=== PATIENT | female | born 1995 | race Caucasian/White ===

== ENCOUNTER → 2021-06-21 | Outpatient (CLI) | payer OTHER ==
[~2021-06-21] MED LIST: IBUP800 PO; OXYACE5T PO
== END | disposition home or self-care (01) ==
LOC: LAB SHORT 09:54
DX: Z34.03 Encounter for supervision of normal first pregnancy, third trimester (principal)
CPT/HCPCS: 87081; 87150

== ENCOUNTER 2021-07-31 16:10 | Inpatient (IN) | payer OTHER ==
[~2021-07-31] VITALS: Ht 160 cm; Wt 96.8 kg
[2021-07-31 18:05] LABS: Influenza A, PCR NEGATIVE (NEGATIVE); Influenza B, PCR NEGATIVE (NEGATIVE); Resp Syncytial Virus, PCR NEGATIVE (NEGATIVE); SARS-Cov-2 (COVID-19) PCR, MMC NEGATIVE (NEGATIVE)
[2021-07-31 18:08] LABS: BASOPHILS ABSOLUTE AUTO 0.03 K/mm3 (0.00-0.23); BASOPHILS PERCENT AUTO 0 % (0-2); EOSINOPHILS ABSOLUTE AUTO 0.04 K/mm3 (0.00-0.68); EOSINOPHILS PERCENT AUTO 1 % (0-6); Hematocrit 35.5 % (33.0-51.0); Hemoglobin 12.6 g/dL (11.5-16.0); IMMATURE GRAN ABSOLUTE AUTO 0.03 K/mm3 (0.00-0.10); IMMATURE GRAN PERCENT AUTO 0 % (0-1); LYMPHOCYTES ABSOLUTE AUTO 1.98 K/mm3 (0.84-5.20); LYMPHOCYTES PERCENT AUTO 24 % (21-46); MONOCYTES ABSOLUTE AUTO 0.76 K/mm3 (0.16-1.47); MONOCYTES PERCENT AUTO 9 % (4-13); Mean Corpuscular HGB 31.3 pg (26.0-34.0); Mean Corpuscular HGB Conc 35.5 g/dL (31.5-36.5); Mean Corpuscular Volume 88 fL (80-100); Mean Platelet Volume 10.7 fL (9.1-12.4); NEUTROPHILS ABSOLUTE AUTO 5.32 K/mm3 (1.96-9.15); NEUTROPHILS PERCENT AUTO 65 % (41-73); Platelet Count 298 K/mm3 (150-400); RDW Coefficient Variation 12.1 % (11.7-14.2); RDW Standard Deviation 38.8 fL (35.1-46.3); Red Blood Cell Count 4.02 M/mm3 (3.80-5.20); White Blood Cell Count 8.16 K/mm3 (4.00-11.30)
[2021-07-31] MEDS ORDERED: PRENATAL TABLE1 EAC2 PO (18:09)
--- NOTE | 2021-08-02 17:55 | NUR ---
LATE ENTRY PER EMR INITIATE PROTOCOL : EPIDURAL PRE VERBAL ORDER FROM JENNIFER MOREIRA/MAURILIO PATRICK 08/01/21 0710
[2021-08-03 05:54] LABS: BASOPHILS ABSOLUTE AUTO 0.07 K/mm3 (0.00-0.23); BASOPHILS PERCENT AUTO 1 % (0-2); EOSINOPHILS ABSOLUTE AUTO 0.18 K/mm3 (0.00-0.68); EOSINOPHILS PERCENT AUTO 2 % (0-6); Hematocrit 32.2 % (33.0-51.0); Hemoglobin 10.9 g/dL (11.5-16.0); IMMATURE GRAN ABSOLUTE AUTO 0.06 K/mm3 (0.00-0.10); IMMATURE GRAN PERCENT AUTO 1 % (0-1); LYMPHOCYTES ABSOLUTE AUTO 2.54 K/mm3 (0.84-5.20); LYMPHOCYTES PERCENT AUTO 22 % (21-46); MONOCYTES ABSOLUTE AUTO 0.97 K/mm3 (0.16-1.47); MONOCYTES PERCENT AUTO 8 % (4-13); Mean Corpuscular HGB 31.1 pg (26.0-34.0); Mean Corpuscular HGB Conc 33.9 g/dL (31.5-36.5); Mean Corpuscular Volume 92 fL (80-100); Mean Platelet Volume 10.9 fL (9.1-12.4); NEUTROPHILS ABSOLUTE AUTO 7.96 K/mm3 (1.96-9.15); NEUTROPHILS PERCENT AUTO 68 % (41-73); Platelet Count 213 K/mm3 (150-400); RDW Coefficient Variation 12.4 % (11.7-14.2); RDW Standard Deviation 41.1 fL (35.1-46.3); White Blood Cell Count 11.78 K/mm3 (4.00-11.30)
--- NOTE | 2021-08-03 11:21 | NUR ---
DISCHARGE TEACHING COMPETED, QUESTIONS ANSWERED, REVIEWED FOLLOW UP APPOINTMENT.
--- NOTE | 2021-08-03 11:35 | NUR ---
DISCHARGED TO HOME WITH HINA
== END 2021-08-03 11:35 | disposition home or self-care (01) | DRG 807 ==
LOC: OBS 16:10 → BC 16:23
PROVIDERS: Advanced Practice Midwife; ADMIT Family Medicine
PROC: 10E0XZZ Delivery of Products of Conception, External Approach (ICD-10-PCS; principal; 2021-08-02)
PROC: 0KQM0ZZ Repair Perineum Muscle, Open Approach (ICD-10-PCS; 2021-08-02)
PROC: 10907ZC Drainage of Amniotic Fluid, Therapeutic from Products of Conception, Via Natural or Artificial Opening (ICD-10-PCS; 2021-08-02)
DX: O48.0 Post-term pregnancy (principal); Z37.0 Single live birth; Z3A.41 41 weeks gestation of pregnancy; O70.1 Second degree perineal laceration during delivery; O69.81X0 Labor and delivery complicated by cord around neck, without compression, not applicable or unspecified
CPT/HCPCS: 0241U; 36415; 51702; 85025; 86850; 86900; 86901; A9270; J1885; J2001; J2210; J2405; J2590; J3010; J7120

== ENCOUNTER 2021-08-07 04:26 | Inpatient (IN) | payer OTHER ==
[~2021-08-07] VITALS: Ht 157.5 cm; Wt 89.3 kg
[~2021-08-07 04:26] MED LIST changes: +PRENATAL TABLE1 EAC2 PO
[2021-08-07 05:42] LABS: BASOPHILS ABSOLUTE AUTO 0.05 K/mm3 (0.00-0.23); BASOPHILS PERCENT AUTO 1 % (0-2); EOSINOPHILS ABSOLUTE AUTO 0.01 K/mm3 (0.00-0.68); EOSINOPHILS PERCENT AUTO 0 % (0-6); Hematocrit 36.8 % (33.0-51.0); Hemoglobin 12.6 g/dL (11.5-16.0); IMMATURE GRAN ABSOLUTE AUTO 0.05 K/mm3 (0.00-0.10); IMMATURE GRAN PERCENT AUTO 1 % (0-1); LYMPHOCYTES ABSOLUTE AUTO 0.87 K/mm3 (0.84-5.20); LYMPHOCYTES PERCENT AUTO 9 % (21-46); MONOCYTES ABSOLUTE AUTO 0.89 K/mm3 (0.16-1.47); MONOCYTES PERCENT AUTO 9 % (4-13); Mean Corpuscular HGB 31.1 pg (26.0-34.0); Mean Corpuscular HGB Conc 34.2 g/dL (31.5-36.5); Mean Corpuscular Volume 91 fL (80-100); Mean Platelet Volume 10.1 fL (9.1-12.4); NEUTROPHILS PERCENT AUTO 81 % (41-73); Platelet Count 285 K/mm3 (150-400); RDW Coefficient Variation 12.3 % (11.7-14.2); RDW Standard Deviation 40.4 fL (35.1-46.3); Red Blood Cell Count 4.05 M/mm3 (3.80-5.20); White Blood Cell Count 9.87 K/mm3 (4.00-11.30)
[2021-08-07 05:55] LABS: Alanine Aminotransfer (ALT/SGP 27 U/L (12-78); Albumin, Blood 2.7 g/dL (3.4-5.0); Albumin/Globulin Ratio 0.6 (0.8-1.8); Alk Phos 107 U/L (50-136); Anion Gap 9 mmol/L (6-16); Aspartate Aminotrans (AST/SGOT 18 U/L (12-37); Bilirubin, Total 0.5 mg/dL (0.1-1.0); Blood Urea Nitrogen 12 mg/dL (8-24); Bun/Creatinine Ratio 17.1 (12.0-20.0); CO2, Blood 20 mmol/L (21-32); Chloride, Blood 109 mmol/L (98-108); Globulin, Blood 4.4 g/dL (2.2-4.0); Glomerular Filtration Rate >60 (60-); Glucose, Blood 91 mg/dL (70-99); Potassium, Blood 3.8 mmol/L (3.5-5.5); Sodium, Blood 138 mmol/L (136-145); Total Protein, Blood 7.1 g/dL (6.4-8.2)
[2021-08-07] MEDS ORDERED: AMOCLA875 PO (06:29)
[2021-08-07 09:53] LABS: Influenza A, PCR NEGATIVE (NEGATIVE); Influenza B, PCR NEGATIVE (NEGATIVE); Resp Syncytial Virus, PCR NEGATIVE (NEGATIVE); SARS-Cov-2 (COVID-19) PCR, MMC NEGATIVE (NEGATIVE)
[2021-08-07 13:32] LABS: BASOPHILS ABSOLUTE AUTO 0.04 K/mm3 (0.00-0.23); BASOPHILS PERCENT AUTO 0 % (0-2); EOSINOPHILS ABSOLUTE AUTO 0.06 K/mm3 (0.00-0.68); EOSINOPHILS PERCENT AUTO 1 % (0-6); Hematocrit 32.7 % (33.0-51.0); Hemoglobin 11.2 g/dL (11.5-16.0); IMMATURE GRAN ABSOLUTE AUTO 0.13 K/mm3 (0.00-0.10); IMMATURE GRAN PERCENT AUTO 1 % (0-1); LYMPHOCYTES ABSOLUTE AUTO 1.07 K/mm3 (0.84-5.20); LYMPHOCYTES PERCENT AUTO 10 % (21-46); MONOCYTES ABSOLUTE AUTO 1.13 K/mm3 (0.16-1.47); MONOCYTES PERCENT AUTO 10 % (4-13); Mean Corpuscular HGB 30.9 pg (26.0-34.0); Mean Corpuscular HGB Conc 34.3 g/dL (31.5-36.5); Mean Corpuscular Volume 90 fL (80-100); NEUTROPHILS ABSOLUTE AUTO 8.47 K/mm3 (1.96-9.15); NEUTROPHILS PERCENT AUTO 78 % (41-73); Platelet Count 265 K/mm3 (150-400); RDW Coefficient Variation 12.3 % (11.7-14.2); RDW Standard Deviation 40.1 fL (35.1-46.3); Red Blood Cell Count 3.63 M/mm3 (3.80-5.20)
--- NOTE | 2021-08-07 16:08 | NUR ---
Pt. was alert and in bed, and welcomed my visit. Established rapport quickly as we have common personal connections. Pt. clearly understood her condition and was hopeful to be able to discharge in 48 hrs. Spouse and child arrived. Prayed with pt. and will check on her tomorrow. Pt. verbalized gratitude for visit. I will monitor.
--- NOTE | 2021-08-07 19:21 | NUR ---
SHIFT SUMMARY PT'S FEVER BROKE THIS AFTERNOON AFTER TYLENOL AND TORADOL. SHE IS GETTING IV ABX. SHE REPORTS DECREASED DISCOMFORT TO LOWER ABD. COMPLAINS OF A HEADACHE, MANAGED WITH TYLENOL AND TORADOL. INDEPENDENT IN ROOM. BABY IN ROOM WITH PT, OK PER DR. OLIVEIRA TO BREASTFEED. VSS. REPORT GIVEN TO HAILE YU.
[2021-08-07 22:43] LABS: Source, Urine Clean Catch
[2021-08-07 22:50] LABS: Bilirubin, Urine Neg (Neg); Blood, Urine 5+ (Neg); Glucose Qualitative, Urine Neg (Neg); Ketones, Urine 4+ (Neg); Leukocyte Esterase, Urine 2+ (Neg); Nitrite, Urine Neg (Neg); Protein, Urine 2+ (Neg); Urobilinogen, Urine 1+ (Normal)
[2021-08-07 23:00] LABS: Appearance, Urine Hazy (Clear); Color, Urine Yellow (P-Yellow)
[2021-08-07 23:01] LABS: Bacteria Mod /hpf; Red Blood Cells, Urine 25-50 /hpf (0-2); Squamous Epithelial Cells Few /hpf (Few); Yeast/Fungi Urine Rare /hpf
--- NOTE | 2021-08-08 05:41 | NUR ---
SHIFT SUMMARY KARY IS S/P VAGINAL DELIVERY, [id number]. ADMITTED FOR FEVER, SHAKINESS, HEADACHE. PT REPORTS BURNING WITH URINATION, URINE SPECIMEN SENT TO LAB. REPORTS VAGINAL DISCHARGE MOVING FROM RED BLOOD TO BROWNISH BLOOD. DENIES CLOTS AND FREQUENT PAD CHANGES. PT IS PUMPING BREAST MILK WITHOUT DIFFICULTY. UP AND OUT OF BED TO SHOWER. REPORTS THAT HER HEADACHE HAS IMPROVED. GENERAL DIET, ROOM AIR. IV ACCESS IN LFA WITH LACTATED RINGERS INFUSING AT 125ML/HR. ABLE TO CALL TO MAKE NEEDS KNOWN. SCDS IN PLACE FOR DVT PROPHYLAXIS.
--- NOTE | 2021-08-08 07:08 | NUR ---
PT AFEBRILE T/O NIGHT; VSS. PT REP LOWER ABD AND BACK PAIN, REP PAIN IMPROVED THIS AM. PT REP LESS PAIN W/VOIDING THIS AM. VAGNAL DISCHARGE APPEARS DARK RED, PT DOING RITCHIE CARE PRN. PT PUMPING AND STORING BREAST MILK. NO C/O N/V. IVF AND ABX CONT PER ORDERS.
[2021-08-08 08:57] LABS: BASOPHILS ABSOLUTE AUTO 0.03 K/mm3 (0.00-0.23); BASOPHILS PERCENT AUTO 0 % (0-2); EOSINOPHILS ABSOLUTE AUTO 0.04 K/mm3 (0.00-0.68); EOSINOPHILS PERCENT AUTO 1 % (0-6); Hematocrit 32.4 % (33.0-51.0); Hemoglobin 10.7 g/dL (11.5-16.0); IMMATURE GRAN ABSOLUTE AUTO 0.07 K/mm3 (0.00-0.10); IMMATURE GRAN PERCENT AUTO 1 % (0-1); LYMPHOCYTES PERCENT AUTO 20 % (21-46); MONOCYTES ABSOLUTE AUTO 0.83 K/mm3 (0.16-1.47); MONOCYTES PERCENT AUTO 10 % (4-13); Mean Corpuscular HGB 30.4 pg (26.0-34.0); Mean Corpuscular Volume 92 fL (80-100); Mean Platelet Volume 9.8 fL (9.1-12.4); NEUTROPHILS ABSOLUTE AUTO 5.52 K/mm3 (1.96-9.15); NEUTROPHILS PERCENT AUTO 68 % (41-73); Platelet Count 288 K/mm3 (150-400); RDW Coefficient Variation 12.3 % (11.7-14.2); RDW Standard Deviation 41.7 fL (35.1-46.3); Red Blood Cell Count 3.52 M/mm3 (3.80-5.20); White Blood Cell Count 8.09 K/mm3 (4.00-11.30)
--- NOTE | 2021-08-08 10:24 | NUR ---
PT SALINE LOCKED AT APROX [address] OLIVEIRA VERBAL ORDER.
--- NOTE | 2021-08-08 12:09 | NUR ---
Pt. was alert and in bed with sleeping on her chest. Pt. welcomed my visit. 2. There were no sigificant signs of outward stress. Pt. was a little unsettled about staying healthy so she take her home tomorrow. Normalized Pt. experience. Explored family plans and provided encouragement. Spouse arrived. Prayed with family. I will monitor.
[2021-08-08 18:17] LABS: Gentamicin, Random 0.6 ug/Ml
--- NOTE | 2021-08-09 00:34 | NUR ---
LATE ENTRY: 2300: RN PLACED PHONE CALL TO PHARMACIST, VALENTE JERRY, TO DISCUSS PT'S AMPICILLIN. TODAY'S 1800 DOSE WAS ADMINISTERED AT 2040, SHOULD WE SKIP NEXT DOSE? PER [facility] TO STANDARD TIME, VALENTE ADVISED TO SKIP 0000 DOSE AND RESUME AT 0500. RN WILL UPDATE EMAR.
--- NOTE | 2021-08-09 04:56 | NUR ---
SHIFT SUMMARY PT HAS REMAINED AFEBRILE THIS SHIFT. S/P SPON VAG DELIVERY, 6 DAYS AGO. DENIES PASSING VAGINAL CLOTS OR VAG DISCHARGE. REPORTS DYSURIA HAS IMPROVED. REPORTS FLANK PAIN "OVER MY KIDNEYS." PUMPING Q3 HOURS. INDEPENDENT IN ROOM, SHOWERING AND USING THE BR. CALLS APPRPRIATELY. DENIES HEADACHE, CHILLS/SHAKING. VSS, NO ACUTE CHANGES. A&O X4. EAGERLY ANTICIPATES DISCHARGE.
[2021-08-09] MEDS ORDERED: ACET500 PO (08:32)
[2021-08-09] MEDS ORDERED: DOCU100 PO (08:32)
[2021-08-09] MEDS ORDERED: IBUP800 PO (08:35)
[2021-08-09] MEDS ORDERED: AMOCLA875 PO (08:36)
--- NOTE | 2021-08-09 09:33 | NUR ---
DISCHARGE PT DISCHARGED HOME AT APROX 0905. PT GIVEN WRITTEN AND VERBAL DISCHARGE INSTRUCTIONS AND VERBALIZED UNDERSTANDING. IV REMOVED. PT REPORTS SHE ALREADY HAS A RX FOR ABX AT HOME SO DOES NOT NEED MEDICATION SENT TO A PHARMACY.
== END 2021-08-09 09:38 | disposition home or self-care (01) | DRG 776 ==
LOC: ER 04:26 → ERHOLD 06:24 → SURS 10:27
PROVIDERS: Student in an Organized Health Care Education/Training Program; ADMIT Obstetrics & Gynecology
DX: O86.12 Endometritis following delivery (principal); O86.21 Infection of kidney following delivery; Z20.822 Contact with and (suspected) exposure to COVID-19; O99.285 Endocrine, nutritional and metabolic diseases complicating the puerperium; E86.0 Dehydration; O99.893 Other specified diseases and conditions complicating puerperium; R51.9 Headache, unspecified; Z85.828 Personal history of other malignant neoplasm of skin
CPT/HCPCS: 0241U; 36415; 74177; 76856; 80053; 80170; 81001; 83605; 85025; 87040; 87086; 93005; 93010; 96365; 96375; 99285; A9270; J0290; J1580; J1885; J7050; J7120; Q9967

== ENCOUNTER → 2022-05-27 | Outpatient (CLI) | payer OTHER ==
[~2022-05-27] MED LIST changes: +ACET500 PO; +AMOCLA875 PO; +DOCU100 PO; +EPIPEN0.3 MG/0.1 IJ
== END | disposition home or self-care (01) ==
LOC: RAD SHORT 12:22 → LAB SHORT 12:22 → LAB 12:22
PROVIDERS: Advanced Practice Midwife
DX: Z01.419 Encounter for gynecological examination (general) (routine) without abnormal findings (principal)
CPT/HCPCS: G0123

== ENCOUNTER → 2022-08-15 | Outpatient (CLI) | payer OTHER | END | disposition home or self-care (01) | LOC: LAB SHORT 11:00 → LAB 11:00 | DX: N76.0 Acute vaginitis (principal) | CPT/HCPCS: 87077; 87086; 87186 ==

== ENCOUNTER 2023-06-03 13:55 | Inpatient (IN) | payer OTHER ==
[2023-06-03] VITALS (12 sets, daily range): BP systolic 99–131; BP diastolic 56–87
[~2023-06-03] VITALS: Ht 157.5 cm; Wt 90.0 kg
[2023-06-03 14:50] LABS: BASOPHILS ABSOLUTE AUTO 0.05 K/mm3 (0.00-0.23); BASOPHILS PERCENT AUTO 1 % (0-2); EOSINOPHILS ABSOLUTE AUTO 0.04 K/mm3 (0.00-0.68); EOSINOPHILS PERCENT AUTO 0 % (0-6); Hematocrit 37.9 % (33.0-51.0); Hemoglobin 13.1 g/dL (11.5-16.0); IMMATURE GRAN ABSOLUTE AUTO 0.02 K/mm3 (0.00-0.10); IMMATURE GRAN PERCENT AUTO 0 % (0-1); LYMPHOCYTES ABSOLUTE AUTO 2.27 K/mm3 (0.84-5.20); LYMPHOCYTES PERCENT AUTO 24 % (21-46); MONOCYTES ABSOLUTE AUTO 0.68 K/mm3 (0.16-1.47); MONOCYTES PERCENT AUTO 7 % (4-13); Mean Corpuscular HGB Conc 34.6 g/dL (31.5-36.5); Mean Corpuscular Volume 90 fL (80-100); Mean Platelet Volume 10.7 fL (9.1-12.4); NEUTROPHILS ABSOLUTE AUTO 6.36 K/mm3 (1.96-9.15); NEUTROPHILS PERCENT AUTO 68 % (41-73); Platelet Count 299 K/mm3 (150-400); RDW Coefficient Variation 12.3 % (11.7-14.2); RDW Standard Deviation 39.7 fL (35.1-46.3); Red Blood Cell Count 4.23 M/mm3 (3.80-5.20); White Blood Cell Count 9.42 K/mm3 (4.00-11.30)
[2023-06-03] MEDS ORDERED: PRENATAL TABLE1 EAC2 PO (15:02)
[2023-06-04] VITALS (38 sets, daily range): BP systolic 83–176; BP diastolic 50–88
--- NOTE | 2023-06-04 10:15 | NUR ---
PT REPORTED FEELING A LARGE GUSH OF BLOOD. RN NOTED LARGE AMOUNT OF BLOOD ON PAD. FUNDUS FIRM, AT UMBILICUS. BLADDER FELT FULL. PT VERBALIZED SHE FELT OKAY AND WANTED TO GET UP AND TRY TO VOID AND SHOWER. NO MORE BLOOD LEAKING WITH FUNDAL RUB. RN GOT PT UP TO SHOWER. ONCE IN SHOWER FOR A FEW MINUTES PT VERBALIZED MORE BLOOD COMING OUT, RN VISUALIZED ANOTHER LARGE AMOUNT OF BLOOD LEAKING FROM PT VAGINA. SHOWER TURNED OFF, CALLED FOR HELP. METHERGINE GIVEN IM, 2ND BAG OF PITOCIN STARTED. RN CALLED JENNIFER MOREIRA CNM AND NOTIFIED OF HEMORRHAGE. QBL NOW AT 798 PLUS AN ADDITION EBL OF AT LEAST 200 IN THE SHOWER THAT WE WERE UNABLE TO MEASURE. ORDER RECIEVED TO GIVE 400 MCG CYTOTEC BUCCAL WELL.
[2023-06-05 00:15] VITALS: BP 107/51
[2023-06-05 03:12] VITALS: BP 111/65
[2023-06-05 05:48] LABS: BASOPHILS ABSOLUTE AUTO 0.05 K/mm3 (0.00-0.23); BASOPHILS PERCENT AUTO 1 % (0-2); EOSINOPHILS ABSOLUTE AUTO 0.14 K/mm3 (0.00-0.68); EOSINOPHILS PERCENT AUTO 1 % (0-6); Hematocrit 31.2 % (33.0-51.0); Hemoglobin 10.5 g/dL (11.5-16.0); IMMATURE GRAN ABSOLUTE AUTO 0.03 K/mm3 (0.00-0.10); IMMATURE GRAN PERCENT AUTO 0 % (0-1); LYMPHOCYTES ABSOLUTE AUTO 3.35 K/mm3 (0.84-5.20); LYMPHOCYTES PERCENT AUTO 33 % (21-46); MONOCYTES PERCENT AUTO 8 % (4-13); Mean Corpuscular HGB 30.6 pg (26.0-34.0); Mean Corpuscular HGB Conc 33.7 g/dL (31.5-36.5); Mean Corpuscular Volume 91 fL (80-100); Mean Platelet Volume 10.3 fL (9.1-12.4); NEUTROPHILS ABSOLUTE AUTO 5.78 K/mm3 (1.96-9.15); NEUTROPHILS PERCENT AUTO 57 % (41-73); Platelet Count 217 K/mm3 (150-400); RDW Coefficient Variation 12.3 % (11.7-14.2); RDW Standard Deviation 40.9 fL (35.1-46.3); Red Blood Cell Count 3.43 M/mm3 (3.80-5.20); White Blood Cell Count 10.15 K/mm3 (4.00-11.30)
[2023-06-05 07:02] VITALS: BP 113/89
== END 2023-06-05 10:00 | disposition home or self-care (01) | DRG 806 ==
LOC: BC 13:55 → OBS 13:55 → BC 14:20
PROVIDERS: ADMIT Advanced Practice Midwife
PROC: 10E0XZZ Delivery of Products of Conception, External Approach (ICD-10-PCS; principal; 2023-06-03)
PROC: 0KQM0ZZ Repair Perineum Muscle, Open Approach (ICD-10-PCS; 2023-06-03)
PROC: 3E0R3BZ Introduction of Anesthetic Agent into Spinal Canal, Percutaneous Approach (ICD-10-PCS; 2023-06-03)
PROC: 00HU33Z Insertion of Infusion Device into Spinal Canal, Percutaneous Approach (ICD-10-PCS; 2023-06-03)
DX: O48.0 Post-term pregnancy (principal); D62 Acute posthemorrhagic anemia; Z37.0 Single live birth; O41.03X0 Oligohydramnios, third trimester, not applicable or unspecified; O72.1 Other immediate postpartum hemorrhage; Z3A.41 41 weeks gestation of pregnancy; O70.1 Second degree perineal laceration during delivery; O90.81 Anemia of the puerperium; Z88.8 Allergy status to other drugs, medicaments and biological substances; Z91.011 Allergy to milk products; Z91.048 Other nonmedicinal substance allergy status; Z88.0 Allergy status to penicillin; Z79.2 Long term (current) use of antibiotics; Z86.19 Personal history of other infectious and parasitic diseases
CPT/HCPCS: 36415; 51702; 85025; 86850; 86900; 86901; 86923; 87210; A9270; J2210; J2405; J2590; J3010; J7120

== ENCOUNTER → 2024-09-09 | Outpatient (CLI) | payer OTHER ==
[2024-09-09 12:55] LABS: Source, Urine Clean Catch
[2024-09-09 14:42] LABS: Amorphous Heavy (0-Heavy); Bacteria Mod /hpf; Calcium Oxalate Crystals Rare /hpf; Mucus Light (0-Heavy); Red Blood Cells, Urine 0-2 /hpf (0-2); Squamous Epithelial Cells Few /hpf (Few); White Blood Cells, Urine 0-2 /hpf (0-5)
[2024-09-09 14:46] LABS: U Amphetamine Screen Not Detected; U Barbituate Screen Not Detected; U Benzodiazapine Screen Not Detected; U Buprenorphine Screen Not Detected; U Cannabinoids Screen Not Detected; U Cocaine Screen Not Detected; U Methadone Screen Not Detected; U Methamphetamine Screen Not Detected; U Opiates Screen Not Detected; U Oxycodone Screen Not Detected; U Phencyclidine Screen Not Detected
== END | disposition home or self-care (01) ==
LOC: LAB 12:53 → LAB SHORT 12:53
PROVIDERS: Advanced Practice Midwife
DX: Z34.81 Encounter for supervision of other normal pregnancy, first trimester (principal)
CPT/HCPCS: 81015; 87086

== ENCOUNTER 2025-04-22 06:57 | Inpatient (IN) | payer OTHER ==
[~2025-04-22] VITALS: Ht 157.5 cm; Wt 86.6 kg
[2025-04-22] VITALS (31 sets, daily range): BP systolic 96–127; BP diastolic 52–89
[2025-04-22] MEDS ORDERED: Tranexamic Acid 100 ML IV SCH (07:35)
[2025-04-22] MEDS ORDERED: FentaNYL Citrate 50 MCG/ML 2 ML Injection IV PRN (07:35)
[2025-04-22] MEDS ORDERED: OXYTOCIN/RINGER'S LACTATE 500 ML IV SCH ×2 (07:35→15:45)
[2025-04-22] MEDS ORDERED: OXYTOCIN/RINGER'S LACTATE 500 ML IV PRN (07:35)
[2025-04-22] MEDS ORDERED: FentaNYL 2mcg/ml-Bup 0.1% Epd 250 ML EPI PRN (07:35)
[2025-04-22] MEDS ORDERED: Oxytocin 10 Unit / ML Vial IM PRN (07:35)
[2025-04-22] MEDS ORDERED: Methylergonovine Maleate 0.2MG / ML 1ML Amp IM PRN ×2 (07:35→15:50)
[2025-04-22] MEDS ORDERED: ePHEDrine Sulfate 50 MG/ML 1ML Injection XX PRN (07:35)
[2025-04-22] MEDS ORDERED: Carboprost Tromethamine 250 MCG/ML 1ML Amp IM PRN (07:35)
[2025-04-22] MEDS ORDERED: Ondansetron HCl 2 MG / ML 2ML Vial IV PRN (07:40)
[2025-04-22 08:07] LABS: BASOPHILS ABSOLUTE AUTO 0.05 K/mm3 (0.00-0.23); BASOPHILS PERCENT AUTO 1 % (0-2); EOSINOPHILS ABSOLUTE AUTO 0.06 K/mm3 (0.00-0.68); EOSINOPHILS PERCENT AUTO 1 % (0-6); Hematocrit 34.0 % (33.0-51.0); Hemoglobin 11.6 g/dL (11.5-16.0); IMMATURE GRAN ABSOLUTE AUTO 0.02 K/mm3 (0.00-0.10); IMMATURE GRAN PERCENT AUTO 0 % (0-1); LYMPHOCYTES ABSOLUTE AUTO 2.49 K/mm3 (0.84-5.20); LYMPHOCYTES PERCENT AUTO 32 % (21-46); MONOCYTES ABSOLUTE AUTO 0.70 K/mm3 (0.16-1.47); MONOCYTES PERCENT AUTO 9 % (4-13); Mean Corpuscular HGB Conc 34.1 g/dL (31.5-36.5); Mean Corpuscular Volume 85 fL (80-100); NEUTROPHILS ABSOLUTE AUTO 4.55 K/mm3 (1.96-9.15); NEUTROPHILS PERCENT AUTO 58 % (41-73); NRBC ABSOLUTE 0.00 K/mm3 (0.00-0.02); NRBC Auto 0.0 /100 WBC (0.0-0.2); Platelet Count 286 K/mm3 (150-400); RDW Coefficient Variation 13.2 % (11.7-14.2); RDW Standard Deviation 40.4 fL (35.1-46.3)
[2025-04-22] MEDS ORDERED: Metoprolol Succ25 MG PO (08:34)
[2025-04-22] MEDS ORDERED: Benzocaine Topical Anesthetic Spray 60GM TOP PRN (15:40)
[2025-04-22] MEDS ORDERED: Witch Hazel/Glycerin PADS TOP PRN (15:40)
[2025-04-22] MEDS ORDERED: FLU VACC TS2025-26(6MOS UP)/PF 45 MCG/0.5 ML SYRINGE IM SCH (15:45)
[2025-04-22] MEDS ORDERED: Ketorolac Tromethamine 30mg Vial IV PRN (15:45)
--- NOTE | 2025-04-22 19:42 | NUR ---
[facility] charting reviewed
[2025-04-23 04:11] VITALS: BP 111/73
[2025-04-23 08:05] VITALS: BP 146/68
[2025-04-23 08:45] VITALS: BP 102/60
[2025-04-23] MEDS ORDERED: Prenatal Vit/FE Fumarate/FA 1 Tab PO SCH (09:00)
[2025-04-23] MEDS ORDERED: FLU VACC TS2025-26(6MOS UP)/PF 45 MCG/0.5 ML SYRINGE IM SCH (11:25)
[2025-04-23 13:01] VITALS: BP 105/60
[2025-04-23 15:55] VITALS: BP 115/76
== END 2025-04-23 16:30 | disposition home or self-care (01) | DRG 807 ==
LOC: OBS 06:57 → BC 06:59 → OBS 07:13 → BC 07:15
PROVIDERS: ADMIT Advanced Practice Midwife
PROC: 10E0XZZ Delivery of Products of Conception, External Approach (ICD-10-PCS; principal; 2025-04-22)
PROC: 0KQM0ZZ Repair Perineum Muscle, Open Approach (ICD-10-PCS; 2025-04-22)
PROC: 10907ZC Drainage of Amniotic Fluid, Therapeutic from Products of Conception, Via Natural or Artificial Opening (ICD-10-PCS; 2025-04-22)
PROC: 3E033VJ Introduction of Other Hormone into Peripheral Vein, Percutaneous Approach (ICD-10-PCS; 2025-04-22)
PROC: 3E0R3BZ Introduction of Anesthetic Agent into Spinal Canal, Percutaneous Approach (ICD-10-PCS; 2025-04-22)
PROC: 00HU03Z Insertion of Infusion Device into Spinal Canal, Open Approach (ICD-10-PCS; 2025-04-22)
DX: O48.0 Post-term pregnancy (principal); Z37.0 Single live birth; O69.81X0 Labor and delivery complicated by cord around neck, without compression, not applicable or unspecified; Z3A.41 41 weeks gestation of pregnancy; O77.0 Labor and delivery complicated by meconium in amniotic fluid; Z91.011 Allergy to milk products; Z88.8 Allergy status to other drugs, medicaments and biological substances; Z91.048 Other nonmedicinal substance allergy status; Z98.890 Other specified postprocedural states; Z79.899 Other long term (current) drug therapy; Z86.19 Personal history of other infectious and parasitic diseases; O70.1 Second degree perineal laceration during delivery; Z28.21 Immunization not carried out because of patient refusal
CPT/HCPCS: 36415; 51702; 85025; 86850; 86900; 86901; 86923; A9270; J1885; J2590; J3010; J7120